=== PATIENT | male | born 1975 | race Caucasian/White ===

== ENCOUNTER 2018-01-23 21:16 | Emergency (ER) | payer OTHER ==
[2018-01-23] MEDS ORDERED: KETOROLAC TROMETHAMINE 60 MG/2 ML VIAL ONE (21:46)
[2018-01-23] MEDS ORDERED: KETOROLAC TROMETHAMINE 60 MG/2 ML VIAL IM ONE (22:11)
[2018-01-23] MEDS ORDERED: ORPHENADRINE CITRATE 100 MG TAB PO ONE (22:12)
--- NOTE | 2018-01-23 22:24 | ED Physician Documentation ---
General Adult - HISTORIAN Historian: patient - HPI Stated Complaint: Left shoulder/neck pain Chief Complaint: General Adult Additional Information: Pain left shoulder for two weaks. Intermittent episodes of same for 5 years. Paz sbeen taking ibuprofen and tylenol, applying heat and topical counterirritanst, with little relief. Thsi episode is worse than usual. Says muscles lock up and he gets PAZ on left side of head. - ROS CONST: no problems - PAST HX Past History: none Allergies/Adverse Reactions: Allergies Allergy/AdvReac Type Severity Reaction Status Date / Time No Known Allergies Allergy Verified 01/23/18 21:29 Home Medications: Ambulatory Orders Medication Instructions Recorded Cyclobenzaprine HCl [Flexeril] 10 mg PO Q8H PRN #30 tablet 01/23/18 - SOCIAL HX Smoking History: non-smoker - FAMILY HX Family History: No - VITAL SIGNS Vital Signs: Vital Signs Temp Pulse Resp BP Pulse Ox 98.6 F 82 16 161/90 01/23/18 21:20 01/23/18 21:20 01/23/18 21:20 01/23/18 21:20 - REVIEWED ASSESSMENTS Nursing Assessment Reviewed: Yes Vitals Reviewed: Yes ED Results Lab/Radiology - Orders Orders: ED Orders Category Date Time Status Ketorolac Tromethamine [Toradol] Med 01/23/18 21:46 Discontinued 60 mg .ROUTE .STK-MED ONE Ketorolac Tromethamine [Toradol] Med 01/23/18 22:11 Discontinued 60 mg IM NOW ONE Orphenadrine Citrate [Norflex] Med 01/23/18 22:12 Discontinued 100 mg PO 1T ONE General Adult Physical Exam - PHYSICAL EXAM GENERAL APPEARANCE: moderate distress EENT: eye inspection normal, ENT inspection normal NECK: other (Holds head tilaterally flexed to right.) RESPIRATORY: no resp distress BACK: normal inspection SKIN: warm/dry, normal color EXTREMITIES: normal range of motion (gait and stance) NEURO: CN's nml as tested, motor nml, sensation nml, cognition normal Discharge Clincal Impression: Cervical strain Prescriptions: Cyclobenzaprine HCl [Flexeril] 10 mg PO Q8H PRN #30 tablet PRN Reason: Pain Referrals: Daniel Cisneros MD [Primary Care Provider] - 2 Days Condition: Fair Disposition: HOME, SELF-CARE Decision to Admit: NO Decision Time: 22:30
[2018-01-23] MEDS ORDERED: CYCLOBENZAPRINE HCL 5 MG TABLET PO ONE (22:25)
[2018-01-23 22:42] VITALS: BP 142/79
== END 2018-01-23 22:30 | disposition home or self-care (01) ==
LOC: ED 21:16
DX: S13.4XXA Sprain of ligaments of cervical spine, initial encounter (principal); X58.XXXA Exposure to other specified factors, initial encounter; Y93.9 Activity, unspecified; Y92.9 Unspecified place or not applicable; Y99.9 Unspecified external cause status
CPT/HCPCS: J1885

== ENCOUNTER 2018-04-22 10:40 | Outpatient (CLI) | payer OTHER ==
[2018-04-22 13:54] LABS: BASOPHILS % 0.6 (0.0-1.5); EOSINOPHILS % 5.8 % (0.0-6.8); MONOCYTES % 5.8 % (0.0-11.0); NEUTROPHILS # 3.7 # k/uL (1.4-7.7)
[2018-04-22 13:55] LABS: MEAN CORPUSCULAR HEMOGLOBIN 31.8 pg (28.0-34.0)
[2018-04-22 14:30] LABS: eGFR (Non-African) > 60
== END 2018-04-22 10:42 ==
LOC: LABRHC 10:40
PROVIDERS: ATTEND Family Medicine
DX: E78.00 Pure hypercholesterolemia, unspecified (principal); E29.1 Testicular hypofunction; R53.82 Chronic fatigue, unspecified
CPT/HCPCS: 80053; 80061; 84402; 85025

== ENCOUNTER 2019-07-12 09:48 | Outpatient (CLI) | payer OTHER ==
[2019-07-12 13:00] LABS: HDL 62 mg/dL (>40); eGFR (Non-African) > 60
[2019-07-14 08:13] LABS: A1C 7.2 % (<5.7)
== END 2019-07-12 09:58 ==
LOC: RT 09:48 → CARD 09:48 → RT 09:58
PROVIDERS: ATTEND Nurse Practitioner Family
DX: R00.2 Palpitations (principal); Z00.00 Encounter for general adult medical examination without abnormal findings; R63.5 Abnormal weight gain
CPT/HCPCS: 80053; 80061; 83036; 84402; 84403; 84443; 93005